=== PATIENT | female | born 1950 | race Two or more races ===

== ENCOUNTER 2019-05-01 11:48 | Outpatient (CLI) | payer OTHER | END 2019-05-01 11:50 | disposition home or self-care (01) | LOC: RAD 11:48 | DX: M12.852 Other specific arthropathies, not elsewhere classified, left hip (principal) ==

== ENCOUNTER → 2020-09-16 | Outpatient (CLI) | payer OTHER | END | disposition home or self-care (01) | LOC: MAMO-SONO 11:15 | PROVIDERS: ATTEND Internal Medicine Cardiovascular Disease | DX: N64.59 Other signs and symptoms in breast (principal); Z12.31 Encounter for screening mammogram for malignant neoplasm of breast; Z87.898 Personal history of other specified conditions ==

== ENCOUNTER 2024-05-08 12:30 | Outpatient (CLI) | payer OTHER | END 2024-05-08 12:40 | disposition home or self-care (01) | LOC: TOM 12:30 | PROVIDERS: ATTEND Internal Medicine Cardiovascular Disease | DX: G30.9 Alzheimer's disease, unspecified (principal) ==

== ENCOUNTER 2024-05-16 09:25 | Outpatient (CLI) | payer OTHER | END 2024-05-16 09:26 | disposition home or self-care (01) | LOC: NUCLEAR 09:25 | PROVIDERS: ATTEND Internal Medicine Cardiovascular Disease | DX: I10 Essential (primary) hypertension (principal) ==

== ENCOUNTER 2024-06-06 12:25 | Outpatient (CLI) | payer OTHER | END 2024-06-06 12:26 | disposition home or self-care (01) | LOC: NUCLEAR 12:25 | PROVIDERS: ATTEND Internal Medicine Cardiovascular Disease | DX: G30.9 Alzheimer's disease, unspecified (principal) | CPT/HCPCS: 78803; A9557 ==